=== PATIENT | male | born 1955 | race Caucasian/White ===

== ENCOUNTER 2018-10-04 07:13 | Inpatient (IN) | payer OTHER ==
[2018-10-01 12:22] VITALS: BMI 23.8
[2018-10-04] MEDS ORDERED: CEFAZOLIN 2 GM/D5W 2 GM/50 ML ML IVPB ONE (07:26)
[2018-10-04] MEDS ORDERED: HEPARIN NA (PORCINE) 5,000 UNITS/ML 1ML VIAL ONE ×2 (07:28→11:10)
--- NOTE | 2018-10-04 07:30 | HP ---
History & Physical Update - History History: No Change - Physical Physical: No Change - Assessment Assessment: No Change - Plan Plan: No Change (H&P in chart from 09/20/2018)
[2018-10-04] MEDS ORDERED: ceFAZolin SODIUM 1 GM VIAL ONE (08:15)
[2018-10-04] MEDS ORDERED: fentaNYL CITRATE 250 MCG/5 ML VIAL ONE (09:11)
--- NOTE | 2018-10-04 09:12 | HP ---
Admitting History and Physical - Admission History of Present Illness: 63 year old man with left ICA stenosis > 80%. No history of stroke, TIA or TMB. He is right handed. History Source: Patient, Medical Record - Past Medical History Cardiovascular: Yes: HTN, Hyperlipdemia Endocrine: Yes: Diabetes Mellitus - Smoking History Smoking history: Former smoker Have you smoked in the past 12 months: No If you are a former smoker, when did you quit?: 10 years ago - Alcohol/Substance Use Hx Alcohol Use: No (occasional) - Social History ADL: Independent History of Recent Travel: No Home Medications - Allergies Allergies/Adverse Reactions: Allergies Allergy/AdvReac Type Severity Reaction Status Date / Time No Known Allergies Allergy Verified 10/04/18 08:07 - Home Medications Home Medications: Ambulatory Orders Glipizide Xl [Glucotrol Xl -] 10 mg PO DAILY 08/26/15 Lisinopril/Hydrochlorothiazide [Lisinopril-Hctz 20-25 mg Tab] 1 each PO DAILY Sitagliptin Phosphate [Januvia] 100 mg PO DAILY 08/26/15 metFORMIN HCL [Metformin HCl] 1,000 mg PO BID 08/26/15 Aspirin Coated [Ecotrin -] 81 mg PO DAILY 10/04/18 Gabapentin 100 mg PO PRN PRN 10/04/18 Nifedipine [Procardia Xl] 30 mg PO DAILY 10/04/18 Pravastatin Sodium 20 mg PO DAILY 10/04/18 Zolpidem Tartrate [Ambien Cr] 12.5 mg PO HS 10/04/18 Family Disease History - Family Disease History Family Disease History: Heart Disease: Father, Brother Physical Examination Vital Signs: Vital Signs Temperature 97.9 F 10/04/18 08:04 Pulse Rate 75 10/04/18 08:04 Respiratory Rate 20 10/04/18 08:04 Blood Pressure 153/69 10/04/18 08:04 O2 Sat by Pulse Oximetry (%) 100 10/04/18 08:03 Constitutional: Yes: No Distress Eyes: Yes: WNL, EOM Intact HENT: Yes: WNL Neck: Yes: Supple Cardiovascular: Yes: Regular Rate and Rhythm Respiratory: Yes: Regular Gastrointestinal: Yes: Normal Bowel Sounds, Soft Extremities: Yes: WNL Edema: No Peripheral Pulses WNL: Yes Neurological: Yes: WNL Imaging - Results Cat Scan: Image Reviewed (Left ICA plaque at origin 80% stenosis) Problem List - Problems (1) Carotid stenosis, asymptomatic Assessment/Plan: Severe stenosis left ICA in 63 year old. Plan left carotid endarterectomy Code(s): I65.29 - OCCLUSION AND STENOSIS OF UNSPECIFIED CAROTID ARTERY Qualifiers: Laterality: left Qualified Code(s): I65.22 - Occlusion and stenosis of left carotid artery
[2018-10-04] MEDS ORDERED: PROPOFOL 20 ML ONE ×2 (09:16)
[2018-10-04] MEDS ORDERED: ROCURONIUM BROMIDE 50 MG/5 ML VIAL ONE ×2 (09:17→10:47)
[2018-10-04] MEDS ORDERED: LIDOCAINE HCL 0.5%, 5 MG/ML (50mL SDVIAL) ONE (09:22)
[2018-10-04] MEDS ORDERED: ceFAZolin SODIUM 1 GM VIAL IVPB ONE (09:30)
[2018-10-04] MEDS ORDERED: LIDOCAINE HCL/PF 2% SDV 5ML VIAL ONE (11:10)
[2018-10-04] MEDS ORDERED: PROTAMINE SULFATE 50 MG/5 ML VIAL ONE (11:10)
[2018-10-04] MEDS ORDERED: DEXAMETHASONE SOD PHOSPHATE 4 MG/1 ML VIAL ONE (11:10)
[2018-10-04] MEDS ORDERED: NEOSTIGMINE METHYLSULFATE 0.5 MG/ML - 10 ML MDV ONE (11:13)
[2018-10-04] MEDS ORDERED: POVIDONE-IODINE OINTMENT 10% - 28.4 GM TUBE ONE (11:16)
--- NOTE | 2018-10-04 11:33 | OP ---
Operative Note - Note: Operative Date: 10/04/18 Pre-Operative Diagnosis: Left carotid stenosis Operation: Left carotid endarterectomy Findings: Large plaque left ICA with severe stenosis. Implants: Thin wall collagen coated Dacron patch Post-Operative Diagnosis: Same as Pre-op Surgeon: Miles Valencia Cobol Programmer: Michelle Bell Anesthesiologist/CASTING MACHINE SET UP OPERATOR: Alma Solano MD Anesthesia: General Specimens Removed: Plaque Estimated Blood Loss (mls): 50
[2018-10-04] MEDS ORDERED: SODIUM CHLORIDE 1,000 ML IV SCH (12:00)
[2018-10-04] MEDS ORDERED: oxyCODONE HCL 5 MG TABLET PO PRN ×2 (12:03→12:04)
[2018-10-04] MEDS ORDERED: ONDANSETRON 4 MG/2 ML VIAL IVPUSH PRN ×2 (12:03→12:06)
[2018-10-04] MEDS ORDERED: MORPHINE SULFATE 2 MG/ML VIAL IVPUSH PRN (12:12)
--- NOTE | 2018-10-04 12:14 | SURG ---
Surgery Professor Of Chemical Engineering Note Professor Of Chemical Engineering: Michelle Bell PA-C Date of Service: 10/04/18 Diagnosis: Left carotid stenosis Procedure: s Left carotid endarterectomy I was present for the entirety of the operative procedure. For further detail, please refer to operative report. Visit type - Case Type Case Type: Scheduled - Emergency Emergency Visit: No - New patient This patient is new to me today: Yes Date on this admission: 10/04/18
[2018-10-04] MEDS ORDERED: LACTATED RINGERS SOLUTION 1,000 ML IV SCH (12:15)
[2018-10-04] MEDS: INSULIN SLIDING SCALE (NOVOLOG) 1 VIAL SQ SCH ×3 (13:17→22:17)
[2018-10-04] MEDS ORDERED: LABETALOL HCL 5 MG/1 ML (100MG/20 ML VIAL) IVPUSH ONE (13:45)
[2018-10-04] MEDS: METOPROLOL TARTRATE 25 MG TABLET (FP) PO SCH ×2 (14:14→22:10)
--- NOTE | 2018-10-04 14:41 | CONSULT ---
Consultation: REQUESTING PROVIDER: Dr. Valencia CONSULT REQUEST: We have been asked to medically evaluate this patient for chest pain. HISTORY OF PRESENT ILLNESS: 63M w/ pmhx of HTN, HLD, IDDM presents to the ICU s/p L carotid endarterectomy, POD #0 for postop monitoring now presenting with chest pain. Pt states about 6 months ago, he had known L carotid stenosis of 30% which had progressed to 80% stenosis after which vasc surg recommended surgical treatment. Silvina-op, pt was found to have a large left plaque in the L ICA w/ severe stenosis. Upon post-op eval, he was found to have squeezing substernal chest pain associated with difficulty breathing and tingling in his b/l lower extremities. Additionally, he was found to be tachycardic and hypertensive with systolic in ~170s. Pt was given Labetolol [address] Valencia in addition to elevating the bed after which pain resolved completely. Upon interview, pt was no longer having chest pain. He denies having this chest pain in the past, and also denies hx of heart/lung disease. Denies jack/d, n/v, sob, abd pain, LE pain. Also denies hx of stroke or TIA. PMHx: HTN, HLD, IDDM PSH: R arm surgery FHx: Father, 2 brothers-DM; Denies hx of CAD, cancer, heart/lung disease Social: Quit smoking x1 month ago; Used to smoke 2 cig/week x15 years. Quit alcohol use in 1984, denies rec drug use. REVIEW OF SYSTEMS: CONSTITUTIONAL: Absent: fever, chills, diaphoresis, generalized weakness, malaise, loss of appetite, weight change HEENT: Absent: rhinorrhea, nasal congestion, throat pain, throat swelling, difficulty swallowing, mouth swelling, ear pain, eye pain, visual changes CARDIOVASCULAR: Absent: chest pain, syncope, palpitations, irregular heart rate, lightheadedness , peripheral edema RESPIRATORY: Absent: cough, shortness of breath, dyspnea with exertion, orthopnea, wheezing GASTROINTESTINAL: Absent: abdominal pain, abdominal distension, nausea, vomiting, diarrhea, constipation GENITOURINARY: Absent: dysuria, frequency, urgency, hesitancy, hematuria, flank pain, genital pain MUSCULOSKELETAL: +L neck tenderness Absent: myalgia, arthralgia, joint swelling, back pain, neck pain NEUROLOGIC: +chronic peripheral neuropathy Absent: headache, focal weakness or paresthesias, dizziness, unsteady gait, seizure, mental status changes, bladder or bowel incontinence PHYSICAL EXAMINATION Vital Signs - 24 hr 10/04/18 10/04/18 10/04/18 07:57 08:03 08:04 Temperature 97.9 F 97.9 F Pulse Rate 75 75 Respiratory 20 20 Rate Blood Pressure 153/69 153/69 O2 Sat by Pulse 100 Oximetry (%) 10/04/18 10/04/18 10/04/18 11:43 12:00 12:15 Temperature 98.2 F 97.9 F Pulse Rate 74 70 12 L Respiratory 11 112 H 65 H Rate Blood Pressure 126/62 129/63 123/59 L O2 Sat by Pulse 10 L 100 100 Oximetry (%) 10/04/18 10/04/18 10/04/18 12:30 12:45 13:00 Temperature 97.9 F 98 F Pulse Rate 68 78 84 Respiratory 11 12 15 Rate Blood Pressure 142/63 146/61 167/70 O2 Sat by Pulse 100 100 Oximetry (%) Gen: AAOx3. NAD. Resting comfortably in bed. HEENT: AT/NC. EOMI. RENETTA. MMM. L neck surgical dressing, c/d/i. Lungs: CTA B/L. No wheezes/rhonchi/rales noted. Heart: RRR. Normal S1, S2. No murmurs noted. Abd: Soft, NT/ND. Normactive BS. No masses noted. Ext: Decreased sensation in b/l feet. No peripheral edema noted. Neuro: Normal speech, facial muscles intact. Laboratory Results - last 24 hr 10/04/18 10/04/18 10/04/18 07:20 07:45 07:55 POC Glucometer 161 Blood Type A POSITIVE A POSITIVE Antibody Screen Negative 10/04/18 12:26 POC Glucometer 167 Blood Type Antibody Screen Active Medications Acetaminophen (Tylenol -) 650 mg PO Q6H JULIO CÉSAR Stop: 10/05/18 10:01 Acetaminophen (Ofirmev Injection -) 1,000 mg IVPB ONCE ONE Stop: 10/04/18 16:01 Aspirin (Ecotrin -) 81 mg PO DAILY@2200 JULIO CÉSAR Atorvastatin Calcium (Lipitor -) 10 mg PO HS JULIO CÉSAR Chlorhexidine Gluconate (Hibiclens For Decolonization -) 1 applic TP HS [facility] Clopidogrel Bisulfate (Plavix -) 75 mg PO DAILY@2200 [facility] Enoxaparin Sodium (Lovenox -) 30 mg SQ DAILY [facility] Fentanyl (Sublimaze Injection -) 50 mcg IVPUSH [id number] PRN PRN Reason: PAIN-PACU ORDER X 4 DOSES ONLY Last Admin: 10/04/18 12:42 Dose: 50 mcg Sodium Chloride (Normal Saline -) 1,000 mls @ 75 mls/hr IV ASDIR [facility] Last Admin: 10/04/18 12:28 Dose: 75 mls/hr Cefazolin Sodium (Ancef 1 Gm Premixed Ivpb -) 1 gm in 50 mls @ 100 mls/hr IVPB Q8H [facility] Stop: 10/05/18 01:29 Lactated Ringer's (Lactated Ringers Solution) 1,000 mls @ 75 mls/hr IV ASDIR [facility] Last Admin: 10/04/18 12:31 Dose: 75 mls/hr Insulin Aspart (Novolog Vial Sliding Scale -) [facility] Protocol Last Admin: 10/04/18 13:17 Dose: Not Given Lisinopril (Prinivil) 20 mg PO DAILY [facility] Metoprolol Tartrate (Lopressor -) 25 mg PO BID [facility] Last Admin: 10/04/18 14:14 Dose: 25 mg Morphine Sulfate (Morphine Sulfate) 2 mg IVPUSH Q6H PRN PRN Reason: PAIN LEVEL 7 - 10 Mupirocin (Bactroban Ointment (For Decolonization) -) 1 applic NS BID [facility] Stop: 10/09/18 21:59 Nifedipine (Procardia Xl -) 30 mg PO DAILY [facility] Ondansetron HCl (Zofran Injection) 4 mg IVPUSH Q6H PRN PRN Reason: NAUSEA AND/OR VOMITING Ondansetron HCl (Zofran Injection) 4 mg IVPUSH Q6H PRN PRN Reason: NAUSEA AND/OR VOMITING Oxycodone HCl (Roxicodone -) 5 mg PO Q6H PRN PRN Reason: PAIN LEVEL 1-5 Oxycodone HCl (Roxicodone -) 10 mg PO Q6H PRN PRN Reason: PAIN LEVEL 6-10 ASSESSMENT/PLAN: 63M w/ pmhx of HTN, HLD, IDDM w/ peripheral neuropathy presents to the ICU s/p L carotid endarterectomy, POD #0 for postop monitoring now presenting with chest pain. #S/p L carotid endarterectomy, POD #0 -ASA 81, Plavix 75 QD -For pain, Morphine 2 Q6H IVP, Tylenol 650 Q6H, Oxycodone 5 Q6H, Oxycodone 10 Q6H -IV abx per surg -Zofran 4 Q6H IVP #Chest pain -Found to be hypertensive in 170s systolic and tachycardic; Labetolol 10 mg IVP given x1 -Trops neg x1, repeat trops at 1030pm tonight -Per cardio, keep BP < 140/90, low-dose BB added; echo ordered -EKG showed NSR, HR 78, QTc 440 ms, 1st AV block, no ST-T changes -Cont to monitor #HTN/HLD Cont home meds: Atorvastatin 10 HS, Lisinopril 20 QD, Lopressor 20 BID, Nifedipine 30 QD #IDDM -BGM/ISS ACHS #Prophylaxis -Lovenox 30 QD #FEN -LR @ 75 -replete PRN -Diabetic/Sodium diet Admit to ICU Dispo: We will continue to follow the patient. Thank you for this consultative opportunity. Visit type - Emergency Visit Emergency Visit: No - New Patient This patient is new to me today: Yes Date on this admission: 10/04/18 - Critical Care Critical Care patient: Yes Total Critical Care Time (in minutes): 35 Critical Care Statement: The care of this patient involved high complexity decision making to prevent further life threatening deterioration of the patient 's condition and/or to evaluate & treat vital organ system(s) failure or risk of failure.
[2018-10-04] MEDS ORDERED: ACETAMINOPHEN 1000 MG/100 ML VIAL (NON FORMULARY) IVPB ONE (16:00)
[2018-10-04] MEDS ORDERED: ONDANSETRON 4 MG/2 ML VIAL IVPUSH ONE (17:00)
--- NOTE | 2018-10-04 17:05 | CON.CARD ---
Consult Consult Specialty:: Cardiology Referred by:: Dr. Valencia Reason for Consultation:: Chest pain - History of Present Illness Chief Complaint: chest pain History of Present Illness: 63M DM, HTN, HLD found to have severe > 80% LICA stenosis s/p L.CEA earlier today. Post op in ICU complained of epigastric and sternal chest pressure that lasted 15 minutes, without associated N/V or diaphoresis. At the time, his BP was elevated: 160-170mmHg systolic. He was given IV Labetalol and then an oral dose of Lopressor with good response in BP. Currently, he is chest pain free. His ECG showed no acute ST changes. He has had one episode of vomiting since then. - History Source History Provided By: Patient, Medical Record - Past Medical History Cardio/Vascular: Yes: HTN, Hyperlipdemia Pulmonary: No: Asthma, Bronchitis, Cancer, COPD, O2 Dependent, Pneumonia, Previously Intubated, Pulmonary Embolus, Pulmonary Fibrosis, Sleep Apnea, Other Gastrointestinal: No: Ascites, Cancer, Constipation, Crohn's Disease, Diverticulitis, Diverticulosis, Esophageal Varices, Gastritis, GERD, GI Bleed, Hemorrhoids, Hiatal Hernia, Inflamatory Bowel Disease, Irritable Bowel Disease, Pancreatitis, Peptic Ulcer Disease, Ulcerative Colitis, Other Hepatobiliary: No: Cirrhosis, Cholelithiasis, Cholecystitis, Choledocholithiasis , Hepatitis A, Hepatitis B, Hepatitis C, Other Renal/: No: Renal Failure, Renal Inusuff, BPH, Cancer, Hematuria, Hemodialysis , Neurogenic Bladder, Renal Calculi, UTI, Other Heme/Onc: No: Anemia, B12 Deficiency, Bleeding Disorder, Cancer, Current Chemotherapy, Current Radiation Therapy, Hemochromatosis, Hypercoaguable State, Myeloproliferative Synd, Sickle Cell Disease, Sickle Cell Trait, Thrombocytopenia, Other Endocrine: Yes: Diabetes Mellitus - Alcohol/Substance Use Hx Alcohol Use: No (occasional) - Smoking History Smoking history: Former smoker Have you smoked in the past 12 months: No If you are a former smoker, when did you quit?: 10 years ago - Social History ADL: Independent History of Recent Travel: No Home Medications - Allergies Allergies/Adverse Reactions: Allergies Allergy/AdvReac Type Severity Reaction Status Date / Time No Known Allergies Allergy Verified 10/04/18 08:07 - Home Medications Home Medications: Ambulatory Orders Glipizide Xl [Glucotrol Xl -] 10 mg PO DAILY 08/26/15 Lisinopril/Hydrochlorothiazide [Lisinopril-Hctz 20-25 mg Tab] 1 each PO DAILY Sitagliptin Phosphate [Januvia] 100 mg PO DAILY 08/26/15 metFORMIN HCL [Metformin HCl] 1,000 mg PO BID 08/26/15 Aspirin Coated [Ecotrin -] 81 mg PO DAILY 10/04/18 Gabapentin 100 mg PO PRN PRN 10/04/18 Nifedipine [Procardia Xl] 30 mg PO DAILY 10/04/18 Pravastatin Sodium 20 mg PO DAILY 10/04/18 Zolpidem Tartrate [Ambien Cr] 12.5 mg PO HS 10/04/18 Family Disease History - Family Disease History Family Disease History: Heart Disease: Father, Brother Review of Systems Findings/Remarks: see HPI - Review of Systems Constitutional: reports: No Symptoms Eyes: reports: No Symptoms HENT: reports: No Symptoms Neck: reports: No Symptoms Cardiovascular: reports: Chest Pain Respiratory: reports: No Symptoms Gastrointestinal: reports: No Symptoms Genitourinary: reports: No Symptoms Musculoskeletal: reports: No Symptoms Integumentary: reports: No Symptoms Neurological: reports: No Symptoms Endocrine: reports: No Symptoms Hematology/Lymphatic: reports: No Symptoms Psychiatric: reports: No Symptoms - Risk Factors Known Risk Factors: Yes: Diabetes Mellitus, Hypercholesterolemia, Hypertension Vital Signs: Vital Signs Temperature 98 F 10/04/18 13:00 Pulse Rate 78 10/04/18 16:00 Respiratory Rate 18 10/04/18 16:00 Blood Pressure 158/71 10/04/18 16:00 O2 Sat by Pulse Oximetry (%) 100 10/04/18 13:00 Constitutional: Yes: No Distress, Calm Eyes: Yes: Conjunctiva Clear, EOM Intact HENT: Yes: Other (L.CEA dressing C/D/I) Respiratory: Yes: CTA Bilaterally Gastrointestinal: Yes: Soft (nontender) Cardiovascular: Yes: Regular Rate and Rhythm JVD: No Carotid Bruit: No Heart Sounds: Yes: S1, S2 (RRR, no M/R/G) Edema: No Peripheral Pulses WNL: Yes Neurological: Yes: Alert, Oriented ...Motor Strength: WNL Psychiatric: Yes: WNL - Other Data Labs, Other Data: Troponin, BNP 10/04/18 14:30 Troponin I < 0.02 Troponin, BNP 10/04/18 14:30 Troponin I < 0.02 Laboratory Tests 10/04/18 14:30 Creatine Kinase 104 Troponin I < 0.02 NSR 78bpm, 1st degree AV block; no acute acute ST changes. Echo: Pending Stress Echo: Other (Nuclear stress 2017- no ischemia, normal EF) Ejection Fraction %: LVEF > or = 40 % Imaging - Results EKG: Image Reviewed Problem List - Problems (1) Postoperative carotid endarterectomy surveillance, encounter for Code(s): Z48.812 - ENCNTR FOR SURGICAL AFTCR FOLLOWING SURGERY ON THE CIRC SYS (2) Atypical chest pain Code(s): R07.89 - OTHER CHEST PAIN (3) Hypertension Code(s): I10 - ESSENTIAL (PRIMARY) HYPERTENSION Qualifiers: Hypertension type: essential hypertension Qualified Code(s): I10 - Essential (primary) hypertension (4) Diabetes Code(s): E11.9 - TYPE 2 DIABETES MELLITUS WITHOUT COMPLICATIONS Qualifiers: Diabetes mellitus type: type 2 Diabetes mellitus complication status: with circulatory complication (5) Carotid stenosis, asymptomatic Assessment/Plan: > 80% Code(s): I65.29 - OCCLUSION AND STENOSIS OF UNSPECIFIED CAROTID ARTERY Qualifiers: Laterality: left Qualified Code(s): I65.22 - Occlusion and stenosis of left carotid artery Assessment/Plan IMP: 1. Severe LICA stenosis s/p L. CEA, POD #1 2. Atypical chest pain: possible GERD vs musculoskeletal , doubt ischemic. 3. History of DM 4. History of HTN 5. History of hyperlipidemia REC: 1. BP control to goal of < 140/90: to continue FLORIDALMA-I, low dose beta berlin added for adjunct post op BP control and while we await cardiac enzyme trend. 2. Serial cardiac enzymes and AM ECG; to continue telemetry 3. Echocardiogram for EF and wall motion. 4. Antiplatelet Rx as per Vascular surgery. 5. DVT prophylaxis 6. Advance diet as per surgical team. Will follow. Thank you.
[2018-10-04] MEDS: CEFAZOLIN 1 GM/D5W 1 GM/50 ML BAG IVPB SCH (17:09)
[2018-10-04] MEDS ORDERED: CLOPIDOGREL BISULFATE 75 MG TABLET (FP) PO SCH (22:00)
[2018-10-04] MEDS ORDERED: CHLORHEXIDINE GLUCONATE 4% CLEANSER FOR DECOLONIZATION TP SCH (22:00)
[2018-10-04] MEDS ORDERED: ASPIRIN COATED 81 MG TABLET.EC PO SCH (22:00)
[2018-10-04] MEDS: ACETAMINOPHEN 325 MG TABLET (FP) PO SCH (22:10)
[2018-10-04] MEDS: MUPIROCIN 2% TOPICAL OINTMENT FOR DECOLONIZATION NS SCH (22:17)
--- NOTE | 2018-10-04 22:42 | EKG ---
Test Reason : Blood Pressure : / mmHG Vent. Rate : 078 BPM Atrial Rate : 078 BPM P-R Int : 208 ms QRS Dur : 086 ms QT Int : 386 ms P-R-T Axes : 050 042 056 degrees QTc Int : 440 ms NORMAL SINUS RHYTHM NORMAL ECG WHEN COMPARED WITH ECG OF 22-MAR-2014 15:15, NO SIGNIFICANT CHANGE WAS FOUND Confirmed by JOSÉ BROWN MD ([id number]) on 10/04/2018 10:42:07 PM Referred By: Confirmed By:JOSÉ BROWN MD
[2018-10-05] MEDS: CEFAZOLIN 1 GM/D5W 1 GM/50 ML BAG IVPB SCH (01:16)
[2018-10-05] MEDS: ACETAMINOPHEN 325 MG TABLET (FP) PO SCH ×2 (05:09→09:40)
[2018-10-05] MEDS: INSULIN SLIDING SCALE (NOVOLOG) 1 VIAL SQ SCH ×4 (06:10→21:23)
[2018-10-05 06:14] LABS: BASO % 0.2 % (0-2.0); EOS % 0.6 % (0-4.5); HEMATOCRIT 30.6 % (35.4-49); HEMOGLOBIN 10.9 GM/dL (11.7-16.9); LYMPH % 26.9 % (8-40); MCH 31.4 pg (25.7-33.7); MCHC 35.8 g/dl (32.0-35.9); MEAN CELL VOLUME 87.8 fl (80-96); MEAN PLT VOLUME 8.9 fl (7.5-11.1); NEUT % 61.3 % (42.8-82.8); PLATELET COUNT 255 K/MM3 (134-434); RBC 3.48 M/mm3 (4.00-5.60); RDW 13.2 % (11.9-15.9); WHITE BLOOD COUNT 10.5 K/mm3 (4.0-10.0)
[2018-10-05 06:31] LABS: ANION GAP 7 MMOL/L (8-16); BLOOD UREA NITROGEN 13 mg/dL (7-18); CALCIUM 8.3 mg/dL (8.5-10.1); CHLORIDE 99 mmol/L (98-107); CO2 29 mmol/L (21-32); CREATININE 0.9 mg/dL (0.55-1.3); GLUCOSE,RANDOM 176 mg/dL (74-106); POTASSIUM 3.6 mmol/L (3.5-5.1); SODIUM 134 mmol/L (136-145)
--- NOTE | 2018-10-05 07:38 | PN ---
Progress Note (short form) - Note Progress Note: POD #1 s/p Left CEA Alert. In bed with HOB at 30 degrees. Doing well. Last night, patient had episode of n/v and CP. Cardiology Consulted and recommendations appreciated. Since then, No EKGs on tele, CP and nausea resolved. Currently, denies n/v/f/c, CP, palpitations, SOB or MURRELL. Last Vital Signs Temp Pulse Resp BP Pulse Ox 99 F 71 21 H 142/62 100 10/05/18 06:08 10/05/18 06:08 10/05/18 06:08 10/05/18 06:08 10/04/18 21:00 CBC, BMP 10/05/18 05:30 10/05/18 05:30 Troponin 10/04/18 10/04/18 10/05/18 14:30 20:00 01:45 Troponin I < 0.02 < 0.02 < 0.02 PE Gen: alert. nad Neck: dressing removed. No hematoma. Hope intact. No dressing reapplied. Neuro: puffs out cheeks bilat, symmetrical smile, shoulder shrug intact, negative lingual deviation LE: SCDS bilat. Soft. NT <Marcus Melendez P - Last Filed: 10/05/18 07:39> - Note Progress Note: No complaints. Neck wound clean and dry Neuro intact Cardiac W/U pending Stable overnight If cleared by Cardiology he may go home today. F/U 1 week in my office <Miles Valencia - Last Filed: 10/05/18 09:52> Problem List - Problems (1) Carotid stenosis, asymptomatic Assessment/Plan: POD #1 s/p Left CEA. OOB and ambulate Pain management Reg diet Cont ASA & Plavix Dressing changed on rounds. Most likely DC home today...Dr. Valencia coming in at 8AM to make final decision. Above discussed with my attending and agrees. Code(s): I65.29 - OCCLUSION AND STENOSIS OF UNSPECIFIED CAROTID ARTERY Qualifiers: Laterality: left Qualified Code(s): I65.22 - Occlusion and stenosis of left carotid artery <Marcus Melendez - Last Filed: 10/05/18 07:39> - Problems (1) Carotid stenosis, asymptomatic Code(s): I65.29 - OCCLUSION AND STENOSIS OF UNSPECIFIED CAROTID ARTERY Qualifiers: Laterality: left Qualified Code(s): I65.22 - Occlusion and stenosis of left carotid artery <Miles Valencia - Last Filed: 10/05/18 09:52>
--- NOTE | 2018-10-05 08:01 | PN ---
Physical Exam: SUBJECTIVE: 63M w/ pmhx of HTN, HLD, IDDM presented to the ICU s/p L carotid endarterectomy, for postop monitoring now presenting with chest pain. Pt states about 6 months ago, he had known L carotid stenosis of 30% which had progressed to 80% stenosis after which vasc surg recommended surgical treatment. Silvina-op, pt was found to have a large left plaque in the L ICA w/ severe stenosis. Upon post-op eval, he was found to have squeezing substernal chest pain associated with difficulty breathing and tingling in his b/l lower extremities. Additionally, he was found to be tachycardic and hypertensive with systolic in ~ 170s. Pt was given Labetolol [address] Valencia in addition to elevating the bed after which pain resolved completely. Upon interview, pt was no longer having chest pain. He denies having this chest pain in the past, and also denies hx of heart/lung disease. Pt seen and examined. Pt reported chest pain 1 hour post op yesterday, he has had no chest pain, shortness of breath, palpitations. Pt reported feeling well and had no complaints this AM. OBJECTIVE: Vital Signs Period Temp Pulse Resp BP Sys/Thomas Pulse Ox Last 24 Hr 97.9 F-99 F 12-84 9-112 107-167/56-71 10-100 GENERAL: The patient is awake, alert, and fully oriented, in no acute distress. HEAD: Normal with no signs of trauma. EYES: PERRL, extraocular movements intact, sclera anicteric, conjunctiva clear. No ptosis. ENT: Ears normal, nares patent, oropharynx clear without exudates, moist mucous membranes. NECK: Trachea midline, full range of motion, supple. LUNGS: Breath sounds equal, bibasilar crackles. speaking full sentences. no accessory muscle use. no wheezing. HEART: Regular rate and rhythm, S1, S2 without murmur, rub or gallop. ABDOMEN: Soft, nontender, nondistended, normoactive bowel sounds, no guarding, no rebound, no hepatosplenomegaly, no masses. EXTREMITIES: 2+ pulses, warm, well-perfused, no edema. NEUROLOGICAL: Cranial nerves II through XII grossly intact. Normal speech, gait not observed. PSYCH: Normal mood, normal affect. SKIN: Warm, dry, normal turgor, no rashes or lesions noted Laboratory Results - last 24 hr 10/04/18 10/04/18 10/04/18 07:20 07:45 12:26 WBC RBC Hgb Hct MCV MCH MCHC RDW Plt Count MPV Absolute Neuts (auto) Neutrophils % Lymphocytes % Monocytes % Eosinophils % Basophils % Nucleated RBC % Sodium Potassium Chloride Carbon Dioxide Anion Gap BUN Creatinine Creat Clearance w eGFR POC Glucometer 167 Random Glucose Calcium Creatine Kinase Troponin I Blood Type A POSITIVE A POSITIVE Antibody Screen Negative 10/04/18 10/04/18 10/04/18 14:30 17:33 20:00 WBC RBC Hgb Hct MCV MCH MCHC RDW Plt Count MPV Absolute Neuts (auto) Neutrophils % Lymphocytes % Monocytes % Eosinophils % Basophils % Nucleated RBC % Sodium Potassium Chloride Carbon Dioxide Anion Gap BUN Creatinine Creat Clearance w eGFR POC Glucometer 231 Random Glucose Calcium Creatine Kinase 104 88 Troponin I < 0.02 < 0.02 Blood Type Antibody Screen 10/04/18 10/04/18 10/05/18 20:00 22:08 01:45 WBC RBC Hgb Hct MCV MCH MCHC RDW Plt Count MPV Absolute Neuts (auto) Neutrophils % Lymphocytes % Monocytes % Eosinophils % Basophils % Nucleated RBC % Sodium Potassium Chloride Carbon Dioxide Anion Gap BUN Creatinine Creat Clearance w eGFR POC Glucometer 236 Random Glucose Calcium Creatine Kinase 87 Troponin I < 0.02 < 0.02 Blood Type Antibody Screen 10/05/18 10/05/18 10/05/18 05:21 05:30 05:30 WBC 10.5 H RBC 3.48 L Hgb 10.9 L Hct 30.6 L D MCV 87.8 MCH 31.4 MCHC 35.8 RDW 13.2 Plt Count 255 MPV 8.9 Absolute Neuts (auto) 6.4 Neutrophils % 61.3 D Lymphocytes % 26.9 D Monocytes % 11.0 H Eosinophils % 0.6 Basophils % 0.2 Nucleated RBC % 0 Sodium 134 L Potassium 3.6 Chloride 99 Carbon Dioxide 29 Anion Gap 7 L BUN 13 Creatinine 0.9 Creat Clearance w eGFR 84.96 POC Glucometer 172 Random Glucose 176 H Calcium 8.3 L Creatine Kinase Troponin I Blood Type Antibody Screen Active Medications Generic Name Dose Route Start Last Admin Trade Name Freq PRN Reason Stop Dose Admin Acetaminophen 650 mg 10/04/18 22:00 10/05/18 05:09 Tylenol - PO 10/05/18 10:01 Not Given Q6H JULIO CÉSAR Aspirin 81 mg 10/04/18 22:00 10/04/18 22:10 Ecotrin - PO 81 mg DAILY@2199 JULIO CÉSAR Administration Atorvastatin Calcium 10 mg 10/05/18 22:00 Lipitor - PO HS [facility] Chlorhexidine Gluconate 1 applic 10/04/18 22:00 10/04/18 22:17 Hibiclens For Decolonization - TP 1 applic HS [facility] Administration Clopidogrel Bisulfate 75 mg 10/04/18 22:00 10/04/18 22:10 Plavix - PO 75 mg DAILY@2199 JULIO CÉSAR Administration Enoxaparin Sodium 30 mg 10/05/18 10:00 Lovenox - SQ DAILY [facility] Fentanyl 50 mcg 10/04/18 12:03 10/04/18 12:42 Sublimaze Injection - IVPUSH 50 mcg [id number] PRN Administration PAIN-PACU ORDER X 4 DOSES ONLY Lactated Ringer's 1,000 mls @ 75 mls/hr 10/04/18 12:15 10/04/18 12:31 Lactated Ringers Solution IV 75 mls/hr ASDIR JULIO CÉSAR Administration Insulin Aspart 1 vial 10/04/18 12:00 10/05/18 06:10 Novolog Vial Sliding Scale - SQ Not Given ACHS [facility] Protocol Lisinopril 20 mg 10/05/18 10:00 Prinivil PO DAILY [facility] Metoprolol Tartrate 25 mg 10/04/18 14:00 10/04/18 22:10 Lopressor - PO 25 mg BID [facility] Administration Morphine Sulfate 2 mg 10/04/18 12:12 Morphine Sulfate IVPUSH Q6H PRN PAIN LEVEL 7 - 10 Mupirocin 1 applic 10/04/18 22:00 10/04/18 22:17 Bactroban Ointment (For Decolonization) - NS 10/09/18 21:59 1 applic BID [facility] Administration Nifedipine 30 mg 10/05/18 10:00 Procardia Xl - PO DAILY [facility] Ondansetron HCl 4 mg 10/04/18 12:03 10/04/18 17:10 Zofran Injection IVPUSH 4 mg Q6H PRN Administration NAUSEA AND/OR VOMITING Ondansetron HCl 4 mg 10/04/18 12:06 Zofran Injection IVPUSH Q6H PRN NAUSEA AND/OR VOMITING Oxycodone HCl 5 mg 10/04/18 12:03 Roxicodone - PO Q6H PRN PAIN LEVEL 1-5 Oxycodone HCl 10 mg 10/04/18 12:04 Roxicodone - PO Q6H PRN PAIN LEVEL 6-10 ASSESSMENT/PLAN: 63M w/ pmhx of HTN, HLD, IDDM w/ peripheral neuropathy presents to the ICU s/p L carotid endarterectomy, POD #1 for postop monitoring now presenting with chest pain. CARDIOVASCULAR #S/p L carotid endarterectomy, POD #1 -ASA 81, Plavix 75 QD -For pain, Morphine 2 Q6H IVP, Tylenol 650 Q6H, Oxycodone 5 Q6H, Oxycodone 10 Q6H -IV abx per surg -Zofran 4 Q6H IVP #Chest pain -10/04/18 Found to be hypertensive in 170s systolic and tachycardic; Labetolol 10 mg IVP given x1 -Monitor showing possible block today, cardio informed -Repeat EKG pending -BP controlled overnight -Serial troponins negativeX3 prior -Trop this AM negative, will not trend -Per cardio, BP well controlled overnight and at goal of < 140/90. Can add low dose beta berlin to home regimen: Toprol XL 25mg daily. -ECHO results pending -EKG showed NSR, HR 78, QTc 440 ms, 1st AV block, no ST-T changes -Cont to monitor #HTN/HLD Cont home meds: Atorvastatin 10 HS, Lisinopril 20 QD, Nifedipine 30 QD -Metoprolol changed from 20 BID to 20 daily per cardio rec #IDDM -BGM/ISS ACHS #Prophylaxis -Lovenox 30 QD #FEN -No IVF -replete PRN -Diabetic/Sodium diet DISPO: -Planned for DC today per Dr. Valencia pending ECHO results -Pt then had changes on the cardiac monitor technician -Tele Visit type - Emergency Visit Emergency Visit: Yes ED Registration Date: 10/04/18 Care time: The patient presented to the Emergency Department on the above date and was hospitalized for further evaluation of their emergent condition. - New Patient This patient is new to me today: Yes Date on this admission: 10/08/18 - Critical Care Critical Care patient: Yes Total Critical Care Time (in minutes): 35 Critical Care Statement: The care of this patient involved high complexity decision making to prevent further life threatening deterioration of the patient 's condition and/or to evaluate & treat vital organ system(s) failure or risk of failure. - Discharge Referral Referred to [facility] No
--- NOTE | 2018-10-05 08:33 | PN ---
Progress Note, Physician Chief Complaint: Seen and examined in ICU today, POD #2 Alert, oriented with no complaints. No further epigastric pain or chest discomfort TELE: NSR History of Present Illness: Denies SOB, dizziness. Denies Nausea or vomiting. Serial cardiac enzymes are negative x 3. - Current Medication List Current Medications: Active Medications Acetaminophen (Tylenol -) 650 mg PO Q6H [facility] Stop: 10/05/18 10:01 Last Admin: 10/05/18 05:09 Dose: Not Given Aspirin (Ecotrin -) 81 mg PO DAILY@2200 [facility] Last Admin: 10/04/18 22:10 Dose: 81 mg Atorvastatin Calcium (Lipitor -) 10 mg PO [facility] Chlorhexidine Gluconate (Hibiclens For Decolonization -) 1 applic TP HS [facility] Last Admin: 10/04/18 22:17 Dose: 1 applic Clopidogrel Bisulfate (Plavix -) 75 mg PO DAILY@2200 [facility] Last Admin: 10/04/18 22:10 Dose: 75 mg Enoxaparin Sodium (Lovenox -) 30 mg SQ DAILY [facility] Fentanyl (Sublimaze Injection -) 50 mcg IVPUSH [id number] PRN PRN Reason: PAIN-PACU ORDER X 4 DOSES ONLY Last Admin: 10/04/18 12:42 Dose: 50 mcg Lactated Ringer's (Lactated Ringers Solution) 1,000 mls @ 75 mls/hr IV ASDIR [facility] Last Admin: 10/04/18 12:31 Dose: 75 mls/hr Insulin Aspart (Novolog Vial Sliding Scale -) 1 vial SQ [facility]; Protocol Last Admin: 10/05/18 06:10 Dose: Not Given Lisinopril (Prinivil) 20 mg PO DAILY [facility] Metoprolol Tartrate (Lopressor -) 25 mg PO BID [facility] Last Admin: 10/04/18 22:10 Dose: 25 mg Morphine Sulfate (Morphine Sulfate) 2 mg IVPUSH Q6H PRN PRN Reason: PAIN LEVEL 7 - 10 Mupirocin (Bactroban Ointment (For Decolonization) -) 1 applic NS BID [facility] Stop: 10/09/18 21:59 Last Admin: 10/04/18 22:17 Dose: 1 applic Nifedipine (Procardia Xl -) 30 mg PO DAILY [facility] Ondansetron HCl (Zofran Injection) 4 mg IVPUSH Q6H PRN PRN Reason: NAUSEA AND/OR VOMITING Last Admin: 10/04/18 17:10 Dose: 4 mg Ondansetron HCl (Zofran Injection) 4 mg IVPUSH Q6H PRN PRN Reason: NAUSEA AND/OR VOMITING Oxycodone HCl (Roxicodone -) 5 mg PO Q6H PRN PRN Reason: PAIN LEVEL 1-5 Oxycodone HCl (Roxicodone -) 10 mg PO Q6H PRN PRN Reason: PAIN LEVEL 6-10 - Objective Vital Signs: Vital Signs Temperature 99 F 10/05/18 06:08 Pulse Rate 71 10/05/18 06:08 Respiratory Rate 21 H 10/05/18 06:08 Blood Pressure 142/62 10/05/18 06:08 O2 Sat by Pulse Oximetry (%) 100 10/04/18 21:00 Constitutional: Yes: No Distress, Calm Neck: Yes: Other (L. CEA incision C/D/I) Respiratory: Yes: CTA Bilaterally Gastrointestinal: Yes: Soft (Soft and nontender.) Edema: No Neurological: Yes: Alert, Oriented ...Motor Strength: WNL Labs: CBC, BMP 10/05/18 05:30 10/05/18 05:30 Laboratory Tests 10/04/18 10/04/18 10/05/18 20:00 20:00 01:45 WBC Hgb Plt Count Sodium Potassium Creatinine Creatine Kinase 88 87 Troponin I < 0.02 < 0.02 < 0.02 10/05/18 10/05/18 05:30 05:30 WBC 10.5 H Hgb 10.9 L Plt Count 255 Sodium 134 L Potassium 3.6 Creatinine 0.9 Creatine Kinase Troponin I - ....Imaging EKG: Image Reviewed Problem List - Problems (1) Postoperative carotid endarterectomy surveillance, encounter for Code(s): Z48.812 - ENCNTR FOR SURGICAL AFTCR FOLLOWING SURGERY ON THE CIRC SYS (2) Atypical chest pain Code(s): R07.89 - OTHER CHEST PAIN (3) Hypertension Code(s): I10 - ESSENTIAL (PRIMARY) HYPERTENSION Qualifiers: Hypertension type: essential hypertension Qualified Code(s): I10 - Essential (primary) hypertension (4) Diabetes Code(s): E11.9 - TYPE 2 DIABETES MELLITUS WITHOUT COMPLICATIONS Qualifiers: Diabetes mellitus type: type 2 Diabetes mellitus complication status: with circulatory complication (5) Carotid stenosis, asymptomatic Code(s): I65.29 - OCCLUSION AND STENOSIS OF UNSPECIFIED CAROTID ARTERY Qualifiers: Laterality: left Qualified Code(s): I65.22 - Occlusion and stenosis of left carotid artery Assessment/Plan IMP: 1. Severe LICA stenosis s/p L. CEA, POD #2 2. Atypical chest pain: possible GERD vs musculoskeletal: Serial cardiac enzymes negative. 3. History of DM 4. History of HTN 5. History of hyperlipidemia REC: 1. BP well controlled overnight and at goal of < 140/90. Can add low dose beta berlin to home regimen: Toprol XL 25mg daily. 2. Serial cardiac enzymes, ECG, telemetry all WNL. 3. Echocardiogram for EF and wall motion, taken- results pending. 4. Antiplatelet Rx as per Vascular surgery. 5. DVT prophylaxis 6. Advance diet as per surgical team. 7. Discharge planning for later today with close outpatient f/u. Will likely arrange outpatient stress test.
[2018-10-05] MEDS ORDERED: POTASSIUM CHLORIDE ORAL LIQUID 20 MEQ/15 ML PO ONE (09:15)
[2018-10-05] MEDS: METOPROLOL TARTRATE 25 MG TABLET (FP) PO SCH (09:41)
[2018-10-05] MEDS ORDERED: ENOXAPARIN NA (PORCINE) 30 MG/0.3 ML DISP.SYRIN SQ SCH (10:00)
[2018-10-05] MEDS ORDERED: LISINOPRIL 20 MG TABLET (FP) PO SCH (10:00)
[2018-10-05] MEDS: MUPIROCIN 2% TOPICAL OINTMENT FOR DECOLONIZATION NS SCH ×2 (10:18→21:17)
[2018-10-05] MEDS: NIFEdipine E.R. 30 MG TABLET (FP) PO SCH ×2 (10:20→10:25)
[2018-10-05] MEDS ORDERED: PT OWN MED DRAWER 7, Y5N ONE (10:20)
[2018-10-05] MEDS ORDERED: METOPROLOL TARTRATE 25 MG TABLET (FP) PO SCH (11:15)
--- NOTE | 2018-10-05 11:51 | ECHO ---
Name: QUAN HART Exam:Adult Echocardiogram Study Date: 10/05/2018 07:59 AM Age: 63 yrs Reason For Study: LV Function Height: 67 in Weight: 152 lb BSA: 1.8 m2 MMode/2D Measurements & Calculations IVSd: 1.2 cm Ao root diam: 2.8 cm LVIDd: 3.9 cm LA dimension: 3.9 cm LVIDs: 2.7 cm LVPWd: 0.81 cm EDV(Teich): 67.6 ml LVOT diam: 2.0 cm ESV(Teich): 27.3 ml LAV (MOD-bp): 33.4 ml Doppler Measurements & Calculations MV E max zaire: 89.2 cm/sec Ao V2 max: 129.0 cm/sec MV A max zaire: 106.7 cm/sec Ao max P.7 mmHg MV E/A: 0.84 MV dec time: 0.13 sec GAYATRI(V,D): 2.3 cm2 LV V1 max P.5 mmHg TR max zaire: 156.8 cm/sec LV V1 max: 93.1 cm/sec TR max P.8 mmHg PA V2 max: 109.9 cm/sec Med Peak E' Zaire: 7.9 cm/sec PA max P.8 mmHg Med E/e': 11.2 Lat Peak E' Zaire: 8.1 cm/sec Lat E/e': 11.1 PI Vmax: 152.0 cm/sec Procedure A complete two-dimensional transthoracic echocardiogram was performed (2D, M-mode, Doppler and color flow Doppler). Left Ventricle The left ventricular size, thickness and function are normal. Left ventricular systolic function is n ormal. Ejection Fraction = 65%. The transmitral spectral Doppler flow pattern is suggestive of impaired LV relaxation. The left ventricular wall motion is normal. Mitral Valve The mitral valve is normal in structure and function. Tricuspid Valve The tricuspid valve is normal in structure and function. There is trace tricuspid regurgitation. Righ t ventricular systolic pressure is 15 mmhg. Aortic Valve The aortic valve is normal in structure and function. Pulmonic Valve The pulmonic valve is not well visualized. Trace pulmonic valvular regurgitation. Great Vessels The aortic root is normal size. Pericardium/Pleura There is no pericardial effusion. There is no pleural effusion. Interpretation Summary The left ventricular size, thickness and function are normal Ejection Fraction = 65%. There is trace tricuspid regurgitation. Trace pulmonic valvular regurgitation. MD Emir Gruber 10/05/2018 11:50 AM
--- NOTE | 2018-10-05 11:55 | PN ---
Teaching Attending Note Name of Resident: Silke Wallace ATTENDING PHYSICIAN STATEMENT I saw and evaluated the patient. I reviewed the resident's note and discussed the case with the resident. I agree with the resident's findings and plan as documented. SUBJECTIVE: Pt seen and examined in the ICU. Some ectopy this AM. Denies shortness of breath or chest pain. Had episode of chest pain yesterday that resolved with vomiting. OBJECTIVE: Vital Signs Period Temp Pulse Resp BP Sys/Thomas Pulse Ox Last 24 Hr 97.9 F-99 F 12-84 9-112 103-167/43-72 97-100 Intake & Output 10/02/18 10/03/18 10/04/18 10/05/18 23:59 23:59 23:59 23:59 Intake Total 2275 1050 Output Total 600 750 Balance 1675 300 Gen: NAD in chair Heart: RRR Lung: decreased breath sounds at the bases Abd: soft, nontender Ext: no edema CBC, BMP 10/05/18 05:30 10/05/18 05:30 Active Medications Aspirin (Ecotrin -) 81 mg PO DAILY@2199 [facility] Last Admin: 10/04/18 22:10 Dose: 81 mg Atorvastatin Calcium (Lipitor -) 10 mg PO [facility] Chlorhexidine Gluconate (Hibiclens For Decolonization -) 1 applic TP [facility] Last Admin: 10/04/18 22:17 Dose: 1 applic Clopidogrel Bisulfate (Plavix -) 75 mg PO DAILY@2200 [facility] Last Admin: 10/04/18 22:10 Dose: 75 mg Enoxaparin Sodium (Lovenox -) 30 mg SQ DAILY [facility] Last Admin: 10/05/18 09:39 Dose: 30 mg Fentanyl (Sublimaze Injection -) 50 mcg IVPUSH [id number] PRN PRN Reason: PAIN-PACU ORDER X 4 DOSES ONLY Last Admin: 10/04/18 12:42 Dose: 50 mcg Insulin Aspart (Novolog Vial Sliding Scale -) 1 vial SQ [facility]; Protocol Last Admin: 10/05/18 11:48 Dose: 2 unit Lisinopril (Prinivil) 20 mg PO DAILY [facility] Last Admin: 10/05/18 09:41 Dose: 20 mg Metoprolol Tartrate (Lopressor -) 25 mg PO DAILY [facility] Last Admin: 10/05/18 11:28 Dose: Not Given Morphine Sulfate (Morphine Sulfate) 2 mg IVPUSH Q6H PRN PRN Reason: PAIN LEVEL 7 - 10 Mupirocin (Bactroban Ointment (For Decolonization) -) 1 applic NS BID [facility] Stop: 10/09/18 21:59 Last Admin: 10/05/18 10:18 Dose: 1 applic Nifedipine (Procardia Xl -) 30 mg PO DAILY [facility] Last Admin: 10/05/18 10:25 Dose: Not Given Ondansetron HCl (Zofran Injection) 4 mg IVPUSH Q6H PRN PRN Reason: NAUSEA AND/OR VOMITING Last Admin: 10/04/18 17:10 Dose: 4 mg Ondansetron HCl (Zofran Injection) 4 mg IVPUSH Q6H PRN PRN Reason: NAUSEA AND/OR VOMITING Oxycodone HCl (Roxicodone -) 5 mg PO Q6H PRN PRN Reason: PAIN LEVEL 1-5 Oxycodone HCl (Roxicodone -) 10 mg PO Q6H PRN PRN Reason: PAIN LEVEL 6-10 ASSESSMENT AND PLAN: L Carotid Stenosis s/p L CEA Atypical Chest Pain HTN DM Hyperlipidemia - cardiology f/u - f/u echocardiogram - pain control - incentive spirometry - ASA, plavix, statin - rehab/PT - PO as tolerated - DVT prophylaxis - can monitor on telemetry
[2018-10-05] MEDS ORDERED: GABAPENTIN 100 MG CAPSULE (FP) PO PRN (11:56)
--- NOTE | 2018-10-05 12:50 | PN ---
Progress Note (short form) - Note Progress Note: Anesthesia postop note 63 y/o M s/p GA for left CEA POD#1, vss, aaox3,eating lunch, feeling good. Had substernal discomfort yesterday, cardiac evaluation negative. No anesthesia complications.
--- NOTE | 2018-10-05 13:34 | EKG ---
Test Reason : Blood Pressure : / mmHG Vent. Rate : 065 BPM Atrial Rate : 065 BPM P-R Int : 196 ms QRS Dur : 082 ms QT Int : 380 ms P-R-T Axes : 050 046 050 degrees QTc Int : 395 ms NORMAL SINUS RHYTHM NORMAL ECG WHEN COMPARED WITH ECG OF 04-OCT-2018 13:49, NO SIGNIFICANT CHANGE WAS FOUND Confirmed by Emir Gruber MD ([id number]) on 10/05/2018 1:34:11 PM Referred By: Esther VALIENTE Confirmed By:Emir Gruber MD
--- NOTE | 2018-10-05 13:48 | OP ---
DATE OF OPERATION: 10/04/2018 SURGEON: Miles Valencia MD DECAY CONTROL OPERATOR: ANALI Brannon PROCEDURE: Left carotid endarterectomy. PREOPERATIVE DIAGNOSIS: Left carotid stenosis. POSTOPERATIVE DIAGNOSIS: Left carotid stenosis. ANESTHESIA: General. ANESTHESIOLOGIST: Alma Solano MD OPERATIVE FINDINGS: There was a large plaque present at the left carotid bulb, extending to the internal carotid artery with severe stenosis of the lumen. OPERATIVE PROCEDURE: Following routine patient identification with side and site verification, general anesthesia was induced. The left neck and chest were prepped with ChloraPrep. Timeout was performed. An incision was made along the anterior border of the left sternocleidomastoid and carried through the subcutaneous tissues and platysmal layer with cautery. The anterior border of the sternocleidomastoid was freed with cautery, and the muscle was retracted laterally. The internal jugular vein was dissected along its anterior border. Side branches were ligated with silk ties and divided. The vein was retracted laterally. The common carotid artery was mobilized at the base of the incision and encircled with umbilical tape. Distal dissection allowed identification of the bifurcation. The external carotid was mobilized and secured with a vessel loop. The internal carotid was then exposed to a point distal to the atherosclerotic plaque. The hypoglossal nerve was identified. Crossing vessels were ligated and divided, and the nerve was mobilized superiorly. Patient was systemically heparinized. The distal internal carotid artery was then secured with a vessel loop. The internal, external, and common carotid arteries were then occluded with vessel loops and vascular clamp, and arteriotomy was made in the common extending to the internal to a point distal to atherosclerotic plaque. A Brener shunt, having previously been filled with heparin and saline solution, was inserted into the internal carotid and secured with a Julián clamp. The shunt was allowed to back bleed through the side arm was re-occluded. The proximal end was placed in the common carotid and flushed through the side arm, and then, flow was restored to the internal under direct visualization. Endarterectomy was then performed with removal of plaque from the common internal and external branches. Loose medial fibers were removed. The distal intima was tacked down with sutures of 7-0 Prolene to prevent dissection. The arteriotomy was then closed with a thin collagen-coated Dacron patch which was sutured to the arterial huang with running 6-0 Prolene sutures. Prior to completion of the suture line, the shunt was clamped, divided, and removed, allowing backbleeding and flushing of all branches. Balloon was filled with heparin solution. The suture line was then completed, and flow restored first to the external and then the internal carotid artery. Bleeding from suture line was controlled with Surgicel. The wound was then closed with interrupted suture of 3-0 Vicryl on the platysmal layer and skin david. Sterile dressing was applied. The patient was then awakened from anesthesia, found to be in intact neurologic condition. He was transported to the ICU in stable condition. MILES VALENCIA M.D. [id number]
[2018-10-05] MEDS ORDERED: oxyCODONE HCL 5 MG TABLET PO PRN ×2 (14:40)
[2018-10-05] MEDS ORDERED: ONDANSETRON 4 MG/2 ML VIAL IVPUSH PRN ×2 (14:40)
[2018-10-05] MEDS ORDERED: MORPHINE SULFATE 2 MG/ML VIAL IVPUSH PRN (14:40)
[2018-10-05] MEDS: metFORMIN HCL 500 MG TABLET (FP) PO SCH (17:14)
--- NOTE | 2018-10-05 19:53 | PATH ---
Surgical Pathology Report Patient Name: QUAN HART [facility]. Rec. #: [id number] /Age/Gender: 1955 (Age: 63) / M Account: [id number] Location: 4 PEDS/ADOL Taken: 10/04/2018 Received: 10/04/2018 Reported: 10/05/2018 Physicians: Miles Valencia M.D. Specimen(s) Received PLAQUE FROM LEFT CAROTID Clinical History Carotid stenosis Final Diagnosis PLAQUE, CAROTID, LEFT, ENDARTERECTOMY: ATHEROMATOUS AND CALCIFIED PLAQUE. Electronically Signed Ronna Fonseca M.D. Gross Description Received in formalin labeled "plaque from left carotid," is a 2.0 x 0.7 x 0.7 cm santana-yellow, focally calcified portion of plaque. Director Of Academic sections are submitted in one cassette, following decalcification. /10/04/2018 saudi10/04/2018
[2018-10-05] MEDS ORDERED: ZOLPIDEM TARTRATE 5 MG TABLET PO PRN (22:00)
[2018-10-05] MEDS ORDERED: ASPIRIN COATED 81 MG TABLET.EC PO SCH (22:00)
[2018-10-05] MEDS ORDERED: CLOPIDOGREL BISULFATE 75 MG TABLET (FP) PO SCH (22:00)
[2018-10-05] MEDS ORDERED: CHLORHEXIDINE GLUCONATE 4% CLEANSER FOR DECOLONIZATION TP SCH (22:00)
[2018-10-05] MEDS ORDERED: ATORVASTATIN CA 10 MG TABLET (FP) PO SCH ×2 (22:00)
[2018-10-06] MEDS ORDERED: PT OWN MED DRAWER 7, Y5N ONE ×2 (05:43→09:59)
[2018-10-06 06:30] LABS: BASO % 0.4 % (0-2.0); EOS % 1.1 % (0-4.5); HEMATOCRIT 30.2 % (35.4-49); HEMOGLOBIN 10.8 GM/dL (11.7-16.9); LYMPH % 20.9 % (8-40); MCH 31.4 pg (25.7-33.7); MCHC 35.9 g/dl (32.0-35.9); MEAN CELL VOLUME 87.6 fl (80-96); MEAN PLT VOLUME 8.9 fl (7.5-11.1); MONO % 11.8 % (3.8-10.2); NEUT % 65.8 % (42.8-82.8); PLATELET COUNT 222 K/MM3 (134-434); RBC 3.44 M/mm3 (4.00-5.60); RDW 13.1 % (11.9-15.9); WHITE BLOOD COUNT 10.7 K/mm3 (4.0-10.0)
[2018-10-06] MEDS ORDERED: sitaGLIPtin PHOSPHATE 100 MG TABLET (FP) PO SCH (07:00)
[2018-10-06] MEDS ORDERED: glipiZIDE-XL 10 MG TAB.ER.24 (FP) PO SCH (07:00)
[2018-10-06] MEDS: metFORMIN HCL 500 MG TABLET (FP) PO SCH (07:08)
[2018-10-06] MEDS: INSULIN SLIDING SCALE (NOVOLOG) 1 VIAL SQ SCH ×2 (07:08→12:07)
[2018-10-06 07:11] LABS: ALBUMIN 3.2 g/dl (3.4-5.0); ALK PHOS 36 U/L (45-117); ANION GAP 4 MMOL/L (8-16); BILIRUBIN,TOTAL 0.2 mg/dL (0.2-1); BLOOD UREA NITROGEN 13 mg/dL (7-18); CALCIUM 8.3 mg/dL (8.5-10.1); CHLORIDE 101 mmol/L (98-107); CO2 28 mmol/L (21-32); CREATININE 0.9 mg/dL (0.55-1.3); GLUCOSE,RANDOM 255 mg/dL (74-106); MAGNESIUM 1.9 mg/dL (1.8-2.4); PHOSPHOROUS 2.7 mg/dL (2.5-4.9); POTASSIUM 4.3 mmol/L (3.5-5.1); SGOT/AST 9 U/L (15-37); SGPT/ALT 30 U/L (13-61); SODIUM 133 mmol/L (136-145); TOT PROT 6.2 g/dl (6.4-8.2)
--- NOTE | 2018-10-06 08:24 | PN ---
Progress Note (short form) - Note Progress Note: No complaints Neck wound clean and dry neuro stable Await cardiology clearance for discharge home today Problem List - Problems (1) Carotid stenosis, asymptomatic Code(s): I65.29 - OCCLUSION AND STENOSIS OF UNSPECIFIED CAROTID ARTERY Qualifiers: Laterality: left Qualified Code(s): I65.22 - Occlusion and stenosis of left carotid artery
--- NOTE | 2018-10-06 09:01 | PN ---
Progress Note, Physician Chief Complaint: Echo normal TELE: NSR, no arrhythmias Feels well, denies CP, SOB, dizziness. - Current Medication List Current Medications: Active Medications Aspirin (Ecotrin -) 81 mg PO DAILY@2200 [facility] Last Admin: 10/05/18 21:23 Dose: 81 mg Atorvastatin Calcium (Lipitor -) 10 mg PO HS [facility] Last Admin: 10/05/18 21:23 Dose: 10 mg Chlorhexidine Gluconate (Hibiclens For Decolonization -) 1 applic TP HS [facility] Last Admin: 10/05/18 21:17 Dose: Not Given Clopidogrel Bisulfate (Plavix -) 75 mg PO DAILY@2200 [facility] Last Admin: 10/05/18 21:23 Dose: 75 mg Enoxaparin Sodium (Lovenox -) 30 mg SQ DAILY [facility] Gabapentin (Neurontin -) 100 mg PO PRN PRN PRN Reason: PAIN Glipizide (Glucotrol Xl -) 10 mg PO DAILY@0700 [facility] Last Admin: 10/06/18 07:09 Dose: Not Given Hydrochlorothiazide (Hctz -) 25 mg PO DAILY [facility] Insulin Aspart (Novolog Vial Sliding Scale -) 1 vial SQ [facility]; Protocol Last Admin: 10/06/18 07:08 Dose: 2 unit Lisinopril (Prinivil) 20 mg PO DAILY [facility] Last Admin: 10/06/18 07:08 Dose: 1,000 mg Metoprolol Tartrate (Lopressor -) 25 mg PO DAILY [facility] Morphine Sulfate (Morphine Sulfate) 2 mg IVPUSH Q6H PRN PRN Reason: PAIN LEVEL 7 - 10 Mupirocin (Bactroban Ointment (For Decolonization) -) 1 applic NS BID [facility] Stop: 10/09/18 21:59 Last Admin: 10/05/18 21:17 Dose: Not Given Nifedipine (Procardia Xl -) 30 mg PO DAILY [facility] Ondansetron HCl (Zofran Injection) 4 mg IVPUSH Q6H PRN PRN Reason: NAUSEA AND/OR VOMITING Ondansetron HCl (Zofran Injection) 4 mg IVPUSH Q6H PRN PRN Reason: NAUSEA AND/OR VOMITING Oxycodone HCl (Roxicodone -) 5 mg PO Q6H PRN PRN Reason: PAIN LEVEL 1-5 Last Admin: 10/05/18 18:12 Dose: 5 mg Oxycodone HCl (Roxicodone -) 10 mg PO Q6H PRN PRN Reason: PAIN LEVEL 6-10 Sitagliptin Phosphate (Januvia -) 100 mg PO DAILY@0700 [facility] Last Admin: 10/06/18 07:08 Dose: 100 mg Zolpidem Tartrate (Ambien -) 10 mg PO HS PRN PRN Reason: INSOMNA - Objective Vital Signs: Vital Signs Temperature 98.5 F 10/06/18 06:00 Pulse Rate 75 10/06/18 06:00 Respiratory Rate 162 H 10/06/18 06:00 Blood Pressure 137/64 10/06/18 06:00 O2 Sat by Pulse Oximetry (%) 98 10/05/18 21:00 Constitutional: Yes: No Distress Cardiovascular: Yes: Regular Rate and Rhythm Respiratory: Yes: CTA Bilaterally Gastrointestinal: Yes: Soft Edema: No Neurological: Yes: Alert, Oriented ...Motor Strength: WNL Labs: CBC, BMP 10/06/18 06:00 10/06/18 06:00 - ....Imaging EKG: Image Reviewed Problem List - Problems (1) Postoperative carotid endarterectomy surveillance, encounter for Code(s): Z48.812 - ENCNTR FOR SURGICAL AFTCR FOLLOWING SURGERY ON THE CIRC SYS (2) Atypical chest pain Code(s): R07.89 - OTHER CHEST PAIN (3) Hypertension Code(s): I10 - ESSENTIAL (PRIMARY) HYPERTENSION Qualifiers: Hypertension type: essential hypertension Qualified Code(s): I10 - Essential (primary) hypertension (4) Diabetes Code(s): E11.9 - TYPE 2 DIABETES MELLITUS WITHOUT COMPLICATIONS Qualifiers: Diabetes mellitus type: type 2 Diabetes mellitus complication status: with circulatory complication (5) Carotid stenosis, asymptomatic Code(s): I65.29 - OCCLUSION AND STENOSIS OF UNSPECIFIED CAROTID ARTERY Qualifiers: Laterality: left Qualified Code(s): I65.22 - Occlusion and stenosis of left carotid artery Assessment/Plan IMP: 1. Severe LICA stenosis s/p L. CEA, POD #3 2. Atypical chest pain: possible GERD vs musculoskeletal: Serial cardiac enzymes negative, echo normal 3. History of DM 4. History of HTN 5. History of hyperlipidemia REC: 1. BP well controlled overnight and at goal of < 140/90. Metoprolol decreased to daily dosing after episode of bradycardia noted by residents- seems to have resolved. 2. Serial cardiac enzymes, ECG, telemetry all WNL overnight, echo WNL 3. Antiplatelet Rx as per Vascular surgery. Ok for discharge from CV standpoint with outpatient f/u of BP with PMD and Cardiology.
[2018-10-06] MEDS ORDERED: PATIENT'S OWN MEDICATION (NON-FORMULARY) (Lisinopril/Hydrochlorothiazide [Lisinopril-Hctz PO SCH (10:00)
[2018-10-06] MEDS ORDERED: ENOXAPARIN NA (PORCINE) 30 MG/0.3 ML DISP.SYRIN SQ SCH (10:00)
[2018-10-06] MEDS ORDERED: LISINOPRIL 20 MG TABLET (FP) PO SCH (10:00)
[2018-10-06] MEDS ORDERED: METOPROLOL TARTRATE 25 MG TABLET (FP) PO SCH (10:00)
[2018-10-06] MEDS ORDERED: NIFEdipine E.R. 30 MG TABLET (FP) PO SCH (10:00)
[2018-10-06] MEDS ORDERED: HYDROCHLOROTHIAZIDE 25 MG TABLET (FP) PO SCH (10:00)
[2018-10-06] MEDS: MUPIROCIN 2% TOPICAL OINTMENT FOR DECOLONIZATION NS SCH (10:02)
[2018-10-06 13:57] VITALS: BP 145/64; PULSE 74; TEMP 99.5
== END 2018-10-06 15:26 | disposition home or self-care (01) | DRG 38 ==
LOC: JSAMEDAYSX 07:13 → JICU 11:37 → J4S 10-05 15:06
PROVIDERS: ADMIT Surgery; ATTEND Surgery
PROC: 03UL0JZ Supplement Left Internal Carotid Artery with Synthetic Substitute, Open Approach (ICD-10-PCS; 2018-10-04)
PROC: 03CJ0ZZ Extirpation of Matter from Left Common Carotid Artery, Open Approach (ICD-10-PCS; 2018-10-04)
PROC: 03UJ0JZ Supplement Left Common Carotid Artery with Synthetic Substitute, Open Approach (ICD-10-PCS; 2018-10-04)
PROC: 03CL0ZZ Extirpation of Matter from Left Internal Carotid Artery, Open Approach (ICD-10-PCS; principal; 2018-10-04 09:00)
DX: I65.22 Occlusion and stenosis of left carotid artery (principal); I97.89 Other postprocedural complications and disorders of the circulatory system, not elsewhere classified; I10 Essential (primary) hypertension; E78.5 Hyperlipidemia, unspecified; E11.9 Type 2 diabetes mellitus without complications; G89.18 Other acute postprocedural pain; I97.3 Postprocedural hypertension; Y83.8 Other surgical procedures as the cause of abnormal reaction of the patient, or of later complication, without mention of misadventure at the time of the procedure; R00.0 Tachycardia, unspecified; R07.89 Other chest pain; I44.0 Atrioventricular block, first degree; Z79.4 Long term (current) use of insulin; Z87.891 Personal history of nicotine dependence; Z48.812 Encounter for surgical aftercare following surgery on the circulatory system
CPT/HCPCS: 36415; 80048; 80053; 82550; 82962; 83735; 84100; 84484; 85025; 86850; 86900; 86901; 88304-TC; 93005; 93010; 93306-TC; J0131; J1644; J7030

== ENCOUNTER 2023-02-04 15:23 | Inpatient (IN) | payer OTHER ==
[2023-02-04 17:11] LABS: HEMATOCRIT 43.2 % (35.4-49); HEMOGLOBIN 14.9 G/dL (11.7-16.9); MCHC 34.5 g/dl (32.0-35.9); PLATELET COUNT 300.9 10^3/uL (134-434); RBC 4.65 10^6/uL (4.00-5.60); RDW 13.6 % (11.9-15.9); WHITE BLOOD COUNT 12.2 10^3/uL (4.0-10.8)
[2023-02-04 17:27] LABS: ALBUMIN 4.7 g/dl (3.4-5.0); BILIRUBIN,TOTAL 0.4 mg/dl (0.2-1); BLOOD UREA NITROGEN 12.7 mg/dl (7-18); CALCIUM 9.9 mg/dl (8.5-10.1); CREATININE 1.2 mg/dl (0.6-1.3); POTASSIUM 3.9 mmol/L (3.5-5.1); SGOT/AST 14.4 U/L (15-37); SGPT/ALT 17.2 U/L (7-52); TOT PROT 7.3 g/dl (6.4-8.2); URIC ACID 4.8 mg/dl (2.6-7.2)
[2023-02-04 17:31] LABS: PLATELET ESTIMATE ADEQUATE
[2023-02-04 19:21] VITALS: BMI 24.2
[2023-02-04] MEDS ORDERED: AMPICILLIN NA/SULBACTAM NA 3 GM in SODIUM CHLORIDE 100 ML IVPB ONE (21:11)
[2023-02-04] MEDS ORDERED: ATORVASTATIN CA 20 MG TABLET (FP) PO SCH (22:00)
[2023-02-04] MEDS ORDERED: NIFEdipine E.R 60 MG TABLET PO SCH (22:00)
[2023-02-04 23:44] LABS: ERYTHROCYTE SEDIMENTATION RATE 21 mm/hr (0-20)
[2023-02-05] MEDS: DEXTROSE 5%-0.45% SALINE 1,000 ML IV SCH ×2 (00:23→13:42)
[2023-02-05] MEDS: AMPICILLIN NA/SULBACTAM NA 3 GM in SODIUM CHLORIDE 100 ML IVPB SCH ×4 (02:22→21:38)
[2023-02-05] MEDS: INSULIN SLIDING SCALE (NOVOLOG) 1 VIAL SQ SCH ×4 (06:56→17:38)
[2023-02-05 09:05] LABS: INR 1.17 (0.83-1.09); PROTHROMBIN TIME (PATIENT) 13.6 SEC (9.7-13.0)
[2023-02-05 09:21] LABS: ALBUMIN 4.1 g/dl (3.4-5.0); BILIRUBIN,TOTAL 0.5 mg/dl (0.2-1); BLOOD UREA NITROGEN 17.6 mg/dl (7-18); CALCIUM 9.1 mg/dl (8.5-10.1); CREATININE 0.9 mg/dl (0.6-1.3); SGOT/AST 10.4 U/L (15-37); SGPT/ALT 11.8 U/L (7-52); TOT PROT 6.1 g/dl (6.4-8.2)
[2023-02-05] MEDS ORDERED: ASPIRIN COATED 81 MG TABLET.EC PO SCH (10:00)
[2023-02-05] MEDS ORDERED: ENOXAPARIN NA (PORCINE) 40 MG/0.4 ML DISP.SYRIN SQ SCH (10:00)
[2023-02-05] MEDS ORDERED: LISINOPRIL 20 MG TABLET PO SCH (10:00)
[2023-02-05] MEDS ORDERED: PANTOPRAZOLE 40 MG TABLET PO SCH (10:00)
[2023-02-05] MEDS ORDERED: metoPROLOL SUCCINATE 25 MG TAB.SR.24H (FP) PO SCH (10:00)
[2023-02-05 13:04] LABS: HEMATOCRIT 37.6 % (35.4-49); HEMOGLOBIN 12.8 GM/dL (11.7-16.9); MCH 30.7 pg (25.7-33.7); MCHC 34.1 g/dl (32.0-35.9); MEAN CELL VOLUME 89.9 fl (80-96); MEAN PLT VOLUME 9.2 fl (7.5-11.1); PLATELET COUNT 294 10^3/uL (134-434); RBC 4.18 M/mm3 (4.00-5.60); RDW 13.2 % (11.9-15.9); WHITE BLOOD COUNT 11.4 K/mm3 (4.0-10.0)
[2023-02-05] MEDS ORDERED: GENTAMICIN SO4 80 MG/2 ML VIAL ONE (15:23)
[2023-02-05] MEDS ORDERED: LIDOCAINE HCL 1%, 10 MG/ML (10ML VIAL) MDV ONE (15:23)
[2023-02-05] MEDS ORDERED: BUPIVACAINE HCL/PF 0.5% (5MG/ML) 10 ML VIAL ONE (15:23)
[2023-02-05] MEDS ORDERED: PROPOFOL 20 ML ONE (15:30)
[2023-02-05] MEDS ORDERED: MIDAZOLAM HCL 2 MG/2 ML SINGLE DOSE VIAL ONE (15:30)
[2023-02-05] MEDS ORDERED: DEXAMETHASONE SOD PHOSPHATE 4 MG/1 ML VIAL ONE (15:35)
[2023-02-05] MEDS ORDERED: ONDANSETRON 4 MG/2 ML VIAL ONE (15:35)
[2023-02-05] MEDS ORDERED: LIDOCAINE 1% P/F 10 MG/ML VIAL INF ONE (15:38)
[2023-02-05] MEDS ORDERED: BUPIVACAINE HCL/PF 0.5% (5MG/ML) 10 ML VIAL IJ ONE (15:38)
[2023-02-05 16:52] LABS: BASO % 0.3 % (0-2.0); EOS % 0.5 % (0-4.5); HEMATOCRIT 35.9 % (35.4-49); HEMOGLOBIN 12.1 GM/dL (11.7-16.9); LYMPH % 15.4 % (8-40); MCH 30.5 pg (25.7-33.7); MCHC 33.8 g/dl (32.0-35.9); MEAN CELL VOLUME 90.4 fl (80-96); MEAN PLT VOLUME 8.4 fl (7.5-11.1); MONO % 11.8 % (3.8-10.2); PLATELET COUNT 270 10^3/uL (134-434); RBC 3.97 M/mm3 (4.00-5.60); WHITE BLOOD COUNT 11.8 K/mm3 (4.0-10.0)
[2023-02-05] MEDS ORDERED: DEXTROSE 5%-0.45% SALINE 1,000 ML IV SCH (16:56)
[2023-02-05 17:36] VITALS: RESP 18
[2023-02-05] MEDS ORDERED: LACTATED RINGERS SOLUTION 1,000 ML IV SCH (17:45)
[2023-02-05] MEDS: NIFEdipine E.R 60 MG TABLET PO SCH (21:38)
[2023-02-05] MEDS: ATORVASTATIN CA 20 MG TABLET (FP) PO SCH (21:38)
[2023-02-06] MEDS: AMPICILLIN NA/SULBACTAM NA 3 GM in SODIUM CHLORIDE 100 ML IVPB SCH ×4 (02:48→21:11)
[2023-02-06] MEDS: INSULIN SLIDING SCALE (NOVOLOG) 1 VIAL SQ SCH ×3 (05:59→17:05)
[2023-02-06] MEDS: metoPROLOL SUCCINATE 25 MG TAB.SR.24H (FP) PO SCH (09:46)
[2023-02-06] MEDS: LISINOPRIL 20 MG TABLET PO SCH (09:46)
[2023-02-06] MEDS: PANTOPRAZOLE 40 MG TABLET PO SCH (09:46)
[2023-02-06] MEDS ORDERED: INSULIN (NOVOLOG) ASPART 100 UNITS/ML 10ML VIAL ONE (11:34)
[2023-02-06] MEDS: ATORVASTATIN CA 20 MG TABLET (FP) PO SCH (21:11)
[2023-02-06] MEDS: NIFEdipine E.R 60 MG TABLET PO SCH (21:11)
[2023-02-06] MEDS: HEPARIN NA (PORCINE) 5,000 UNITS/ML 1ML VIAL SQ SCH (21:11)
[2023-02-07] MEDS: AMPICILLIN NA/SULBACTAM NA 3 GM in SODIUM CHLORIDE 100 ML IVPB SCH ×2 (04:49→09:00)
[2023-02-07] MEDS: INSULIN SLIDING SCALE (NOVOLOG) 1 VIAL SQ SCH ×3 (06:25→16:58)
[2023-02-07] MEDS: HEPARIN NA (PORCINE) 5,000 UNITS/ML 1ML VIAL SQ SCH ×2 (09:42→21:56)
[2023-02-07] MEDS: metoPROLOL SUCCINATE 25 MG TAB.SR.24H (FP) PO SCH (09:42)
[2023-02-07] MEDS: LISINOPRIL 20 MG TABLET PO SCH (09:42)
[2023-02-07] MEDS: PANTOPRAZOLE 40 MG TABLET PO SCH (09:42)
[2023-02-07 09:56] LABS: BASO % 0.5 % (0-2.0); HEMATOCRIT 38.8 % (35.4-49); HEMOGLOBIN 13.6 GM/dL (11.7-16.9); LYMPH % 22.7 % (8-40); MCH 31.4 pg (25.7-33.7); MCHC 35.1 g/dl (32.0-35.9); MEAN CELL VOLUME 89.5 fl (80-96); MEAN PLT VOLUME 8.7 fl (7.5-11.1); MONO % 9.7 % (3.8-10.2); NEUT % 66.1 % (42.8-82.8); PLATELET COUNT 329 10^3/uL (134-434); RBC 4.33 M/mm3 (4.00-5.60); RDW 12.8 % (11.9-15.9); WHITE BLOOD COUNT 8.6 K/mm3 (4.0-10.0)
[2023-02-07 10:13] LABS: POTASSIUM 4.4 mmol/L (3.5-5.1)
[2023-02-07 10:30] LABS: ALBUMIN 3.5 g/dl (3.4-5.0); BLOOD UREA NITROGEN 13.7 mg/dL (7-18)
[2023-02-07 10:31] LABS: BILIRUBIN,TOTAL 0.4 mg/dL (0.2-1); TOT PROT 7.2 g/dl (6.4-8.2)
[2023-02-07 10:32] LABS: CALCIUM 9.6 mg/dL (8.5-10.1)
[2023-02-07 10:33] LABS: CREATININE 0.9 mg/dL (0.55-1.3)
[2023-02-07] MEDS ORDERED: VANCOMYCIN 1 GM/200 ML PREMIX BAG (RESTRICTED TO ID ONLY) IVPB ONE (10:45)
[2023-02-07] MEDS: INSULIN (LEVEMIR) 100 UNITS/ML UNITS SQ SCH ×2 (10:53→21:55)
[2023-02-07] MEDS ORDERED: INSULIN (NOVOLOG) ASPART 100 UNITS/ML 10ML VIAL ONE ×2 (11:44→22:03)
[2023-02-07] MEDS: NIFEdipine E.R 60 MG TABLET PO SCH (21:56)
[2023-02-07] MEDS: ATORVASTATIN CA 20 MG TABLET (FP) PO SCH (21:56)
[2023-02-07 22:52] VITALS: BP 152/71; PULSE 60; TEMP 98
[2023-02-07] MEDS: VANCOMYCIN/WATER FOR INJ (PEG) 1,000 MG/200 ML BAG IVPB SCH (23:08)
[2023-02-08] MEDS: INSULIN (LEVEMIR) 100 UNITS/ML UNITS SQ SCH (06:01)
[2023-02-08] MEDS: INSULIN SLIDING SCALE (NOVOLOG) 1 VIAL SQ SCH ×2 (06:01→11:15)
[2023-02-08] MEDS: metoPROLOL SUCCINATE 25 MG TAB.SR.24H (FP) PO SCH (09:15)
[2023-02-08] MEDS: HEPARIN NA (PORCINE) 5,000 UNITS/ML 1ML VIAL SQ SCH (09:15)
[2023-02-08] MEDS: LISINOPRIL 20 MG TABLET PO SCH (09:15)
[2023-02-08] MEDS: PANTOPRAZOLE 40 MG TABLET PO SCH (09:16)
[2023-02-08 10:02] LABS: BASO % 0.4 % (0-2.0); EOS % 0.9 % (0-4.5); HEMATOCRIT 38.3 % (35.4-49); LYMPH % 21.2 % (8-40); MCH 30.9 pg (25.7-33.7); MCHC 34.1 g/dl (32.0-35.9); MEAN CELL VOLUME 90.6 fl (80-96); MONO % 10.3 % (3.8-10.2); NEUT % 67.2 % (42.8-82.8); PLATELET COUNT 332 10^3/uL (134-434); RBC 4.22 M/mm3 (4.00-5.60); RDW 12.6 % (11.9-15.9); WHITE BLOOD COUNT 8.4 K/mm3 (4.0-10.0)
[2023-02-08 10:17] LABS: POTASSIUM 4.3 mmol/L (3.5-5.1)
[2023-02-08 10:22] LABS: CALCIUM 8.8 mg/dL (8.5-10.1)
[2023-02-08 10:23] LABS: BLOOD UREA NITROGEN 13.5 mg/dL (7-18)
[2023-02-08] MEDS ORDERED: INSULIN (LEVEMIR) 100 UNITS/ML UNITS SQ SCH (10:35)
[2023-02-08] MEDS ORDERED: INSULIN (NOVOLOG) ASPART 100 UNITS/ML 10ML VIAL SQ SCH (11:00)
[2023-02-08] MEDS: VANCOMYCIN/WATER FOR INJ (PEG) 1,000 MG/200 ML BAG IVPB SCH (11:08)
== END 2023-02-08 14:00 | disposition home or self-care (01) | DRG 605 ==
LOC: FER 15:23 → FM/S 18:10 → J6S 02-05 12:58
PROVIDERS: ADMIT Internal Medicine; ATTEND Internal Medicine
PROC: 0J9Q0ZZ Drainage of Right Foot Subcutaneous Tissue and Fascia, Open Approach (ICD-10-PCS; 2023-02-05)
PROC: 0HCMXZZ Extirpation of Matter from Right Foot Skin, External Approach (ICD-10-PCS; principal; 2023-02-05 14:30)
DX: S90.851A Superficial foreign body, right foot, initial encounter (principal); L03.115 Cellulitis of right lower limb; E78.5 Hyperlipidemia, unspecified; K21.9 Gastro-esophageal reflux disease without esophagitis; E11.42 Type 2 diabetes mellitus with diabetic polyneuropathy; I10 Essential (primary) hypertension; E11.65 Type 2 diabetes mellitus with hyperglycemia; X58.XXXA Exposure to other specified factors, initial encounter; Y93.9 Activity, unspecified; Y92.89 Other specified places as the place of occurrence of the external cause; Y99.9 Unspecified external cause status
CPT/HCPCS: 0241U-QW; 36415; 71045-TC-FY; 73610-TC-RT-FY; 73630-TC-RT-FY; 76000-TC-FY; 80048; 80053; 81003; 82962; 84550; 85025; 85027; 85610; 85651; 86140; 87040; 87070; 87205; 88300-TC; 93005; 93971-TC; 94760; 99285-25; J1644